=== PATIENT | male | born 1985 | race Caucasian/White ===

== ENCOUNTER 2020-04-06 22:14 | Inpatient (IN) | payer MEDICARE, MEDICAID, SELFPAY ==
[2020-04-06 22:14] VITALS: BP 140/92; PULSE 121; RESP 18; TEMP 36.4; O2SAT 98; BMI 29.2
[2020-04-06 23:10] LABS: Bacteria 0 SEEN /hpf (None Seen); Mucous, Urine 0 SEEN /hpf (<or=2+); Red Blood Cells-Urine 0 SEEN /hpf (0-5); Squamous Epithelial Cells - UA 0 SEEN /hpf (0-5); White Blood Cells 0 SEEN /hpf (0-5)
[2020-04-06 23:14] VITALS: RESP 18
--- NOTE | 2020-04-06 23:18 | ED.VIS.GEN ---
History of Present Illness Chief Complaint: ETOH Intox Informant: Patient, Significant Other Narrative: Patient presenting asking for detox. Chronic alcoholic does not know how long he has been drinking. Keeps talking about wanting to get into rehab. Denies any suicidal ideation or medical issues except for intermittent hematuria that happens from time to time that he has never looked into. No recent illnesses or injuries. He has used methamphetamine on occasion but not recently. No other substance use except for cigarettes. He usually does not experience withdrawal symptoms since he drinks throughout the day, he awakens every couple hours to drink alcohol throughout the night. Typical intake is about one fifth of bourbon per day, today he drank 1 L. Currently intoxicated. Here with the support of a significant other. - Past Medical History (1) Alcoholism Status: Chronic (2) Hypertension Status: Chronic Past Medical History - Allergies and Home Meds Allergies/Adverse Reactions: Allergies Sulfa (Sulfonamide Antibiotics) Allergy (Verified 04/06/20 22:17) Swelling Primary Care Physician: NOT,DEFINED [NON-STAFF] - Lives: Spouse/ Significant Other Smoking Status: Current every day smoker Alcohol: Heavy Drugs: - - Methamphetamine Review of Systems General: Denies: Chills, Fever, Sweats Eyes: Denies: Visual changes - bilaterally, Diplopia ENT: Denies: Rhinorrhea, Sore throat Cardiovascular: Denies: Chest pain, Palpitations Respiratory: Denies: Dyspnea, Cough, Dyspnea on exertion Gastrointestinal: Denies: Abdominal pain, Nausea, Vomiting, Diarrhea, Melena, Hematochezia Genitourinary: Reports: Hematuria - Intermittently, chronic. Denies: Dysuria, Frequency Musculoskeletal: Denies: Myalgias, Neck pain, Back pain, Swelling, Extremity Pain Skin: Denies: Rash, Wounds Neurological: Denies: Headache, Weakness, Numbness Psych: Reports: Anxiety. Denies: Suicidal thoughts Physical Exam Vital Signs/Narrative: Vital Signs Temp Pulse Resp BP Pulse Ox 04/06/20 23:14 18 04/06/20 22:14 97.5 F L 121 H 18 140/92 H 98 Inital Vital Signs reviewed: Yes General: Well nourished, Well developed, No Acute Distress Head: Normocephalic, Atraumatic Eyes: Perrl, EOMI. Negative for: Scleral icterus - No sublingual jaundice ENT: Moist mucous membranes, No rhinorrhea Neck: Supple, Nontender, No lymphadenopathy Cardiovascular: Regular rate, Regular rhythm, No murmurs Respiratory: No distress, CTA bilaterally, Chest nontender Abdomen: Soft, Nontender, Nondistended, Normal bowel sounds Back: Nontender, Normal Inspection Extremities: Nontender, No edema. Negative for: Calf Tenderness Skin: Normal color, No rash, No Trauma Neurological: Alert, Oriented x3, Cranial nerves II-XII grossly intact, Normal Strength, Normal Sensation, - - Intoxicated. Cooperative. Psychological: Normal Mood, - - Anxious Diagnostic/Tx/Re-eval Laboratory Tests 04/06/20 04/06/20 04/06/20 Range/Units 22:59 22:59 22:59 WBC (4.4-11.0) K/mm3 RBC (4.6-6.2) M/mm3 Hgb (13.0-16.5) g/dL Hct (40-54) % MCV (80-94) fL MCH (27.0-32.0) pg MCHC (32-36) g/dL RDW Std Deviation (35.1-43.9) fl RDW Coeff of Suzy (11.6-14.6) % Plt Count (150-450) K/mm3 MPV (6.2-12.0) fl Immature Gran % (Auto) (0.0-0.9) % Neut % (Auto) (47-70) % Lymph % (Auto) (19-41) % [place] % (Auto) (0-10) % Eos % (Auto) (0-5) % Baso % (Auto) (0-1) % Absolute Neuts (auto) (2.0-7.7) X10^3/uL Absolute Lymphs (auto) (0.83-4.51) X10^3/uL Nucleated RBC % (0-5) % PT (11.7-14.9) SECONDS INR Sodium 145 (136-145) mmol/L Potassium 3.5 (3.5-5.1) mmol/L Chloride 114 H (98-107) mmol/L Carbon Dioxide 23.0 (21.0-32.0) mmol/L Anion Gap 8 (5-15) BUN 13 (7-18) mg/dL Creatinine 0.93 (0.70-1.30) mg/dL Estim Creat Clear Calc 116.95 ml/min Est GFR (MDRD) Af Amer 119 (>60) mL/min Est GFR (MDRD) Non-Af 98 (>60) mL/min BUN/Creatinine Ratio 14.0 (10-20) RATIO Glucose 112 H (74-106) mg/dL Calcium 9.4 (8.5-10.1) mg/dL Total Bilirubin 0.10 L (0.20-1.00) mg/dL AST 27 (15-37) U/L ALT 30 (16-61) U/L Alkaline Phosphatase 87 (45-117) U/L Total Protein 9.0 H (6.4-8.2) g/dL Albumin 4.5 (3.2-5.0) g/dL Globulin 4.5 H (2.2-4.2) g/dL Albumin/Globulin Ratio 1.0 (0.9-2.4) RATIO Urine Color Straw (Yellow) Urine Clarity Clear (Clear) Urine pH 6.0 (5.0 - 8.0) Ur Specific [place] 1.010 (1.002-1.030) Urine Protein 30 H (Negative) mg/dl Urine Glucose (UA) Normal (Normal) mg/dl Urine Ketones Negative (Negative) mg/dl Urine Occult Blood Negative (Negative) /ul Urine Nitrite Negative (Negative) Urine Bilirubin Negative (Negative) mg/dL Urine Urobilinogen Normal (Normal) mg/dl Ur Leukocyte Esterase Negative (Negative) /ul Urine RBC 0 SEEN (0-5) /hpf Urine WBC 0 SEEN (0-5) /hpf Ur Squamous Epith Cells 0 SEEN (0-5) /hpf Urine Bacteria 0 SEEN (None Seen) /hpf Urine Mucus 0 SEEN (<or=2+) /hpf Urine Opiates Screen NEGATIVE (< 300 ng/mL) Urine Methadone Screen NEGATIVE (< 300 ng/mL) Ur Barbiturates Screen NEGATIVE (< 200 ng/mL) Ur Phencyclidine Scrn NEGATIVE (< 25 ng/mL) Ur Amphetamines Screen NEGATIVE (<1000 ng/mL) U Methamphetamin-MDMA NEGATIVE (< 500 ng/mL) U Benzodiazepines Scrn NEGATIVE (< 200 ng/mL) Urine Cocaine Screen NEGATIVE (< 300 ng/mL) U Cannabinoids Screen NEGATIVE (< 50 ng/mL) Ur Drug Screen Comment 04/06/20 04/06/20 Range/Units 22:59 22:59 WBC 12.8 H (4.4-11.0) K/mm3 RBC 4.30 L (4.6-6.2) M/mm3 Hgb 14.3 (13.0-16.5) g/dL Hct 41.9 (40-54) % MCV 97.4 H (80-94) fL MCH 33.3 H (27.0-32.0) pg MCHC 34.1 (32-36) g/dL RDW Std Deviation 55.6 H (35.1-43.9) fl RDW Coeff of Suzy 15.5 H (11.6-14.6) % Plt Count 377 (150-450) K/mm3 MPV 9.0 (6.2-12.0) fl Immature Gran % (Auto) 0.900 (0.0-0.9) % Neut % (Auto) 59.5 (47-70) % Lymph % (Auto) 31.4 (19-41) % [place] % (Auto) 6.0 (0-10) % Eos % (Auto) 1.6 (0-5) % Baso % (Auto) 0.6 (0-1) % Absolute Neuts (auto) 7.6 (2.0-7.7) X10^3/uL Absolute Lymphs (auto) 4.02 (0.83-4.51) X10^3/uL Nucleated RBC % 0 (0-5) % PT 11.4 L (11.7-14.9) SECONDS INR 0.9 Sodium (136-145) mmol/L Potassium (3.5-5.1) mmol/L Chloride (98-107) mmol/L Carbon Dioxide (21.0-32.0) mmol/L Anion Gap (5-15) BUN (7-18) mg/dL Creatinine (0.70-1.30) mg/dL Estim Creat Clear Calc ml/min Est GFR (MDRD) Af Amer (>60) mL/min Est GFR (MDRD) Non-Af (>60) mL/min BUN/Creatinine Ratio (10-20) RATIO Glucose (74-106) mg/dL Calcium (8.5-10.1) mg/dL Total Bilirubin (0.20-1.00) mg/dL AST (15-37) U/L ALT (16-61) U/L Alkaline Phosphatase (45-117) U/L Total Protein (6.4-8.2) g/dL Albumin (3.2-5.0) g/dL Globulin (2.2-4.2) g/dL Albumin/Globulin Ratio (0.9-2.4) RATIO Urine Color (Yellow) Urine Clarity (Clear) Urine pH (5.0 - 8.0) Ur Specific [place] (1.002-1.030) Urine Protein (Negative) mg/dl Urine Glucose (UA) (Normal) mg/dl Urine Ketones (Negative) mg/dl Urine Occult Blood (Negative) /ul Urine Nitrite (Negative) Urine Bilirubin (Negative) mg/dL Urine Urobilinogen (Normal) mg/dl Ur Leukocyte Esterase (Negative) /ul Urine RBC (0-5) /hpf Urine WBC (0-5) /hpf Ur Squamous Epith Cells (0-5) /hpf Urine Bacteria (None Seen) /hpf Urine Mucus (<or=2+) /hpf Urine Opiates Screen (< 300 ng/mL) Urine Methadone Screen (< 300 ng/mL) Ur Barbiturates Screen (< 200 ng/mL) Ur Phencyclidine Scrn (< 25 ng/mL) Ur Amphetamines Screen (<1000 ng/mL) U Methamphetamin-MDMA (< 500 ng/mL) U Benzodiazepines Scrn (< 200 ng/mL) Urine Cocaine Screen (< 300 ng/mL) U Cannabinoids Screen (< 50 ng/mL) Ur Drug Screen Comment - Medical Decision Making Patient and significant other repeatedly were asking for something to relax him. He was given an Ativan which he took. Subsequently, for reasons that are unknown to me at this time, he eloped with his significant other. Disposition: Elopement ED Disposition - Plan for ED Patient: Diagnosis: Alcohol dependence, Alcohol intoxication
[2020-04-06 23:21] LABS: Color, Urine Straw (Yellow); Glucose, Dipstick Normal (Normal); International Normalized Ratio 0.9; Ketone-Dipstick Negative (Negative); Leukocyte Esterase-Dipstick Negative /ul (Negative); Nitrite-Dipstick Negative (Negative); Occult Blood-Urine Negative /ul (Negative); Protein-Dipstick 30 mg/dl (Negative); Prothrombin Time (Protime)PT. 11.4 SECONDS (11.7-14.9); Urine Bilirubin Dipstick Negative (Negative); Urine Clarity Clear (Clear); Urine Urobilinogen Normal (Normal)
[2020-04-06] MEDS: LORazepam 1 MG Tablet PO (23:21)
[2020-04-06 23:28] LABS: Absolute Lymphocyte Count 4.02 X10^3/uL (0.83-4.51); Absolute Neutrophil Count 7.6 X10^3/uL (2.0-7.7); Basophil# 0.08 X10^3/uL; Basophil% 0.6 % (0-1); Eosinophils% 1.6 % (0-5); Hematocrit 41.9 % (40-54); Hemoglobin 14.3 g/dL (13.0-16.5); Lymphocyte # 4.02 X10^3/ul (4.0); Lymphocyte % 31.4 % (19-41); Mean Corp Hgb Conc 34.1 g/dL (32-36); Mean Corpuscular Hgb 33.3 pg (27.0-32.0); Mean Corpuscular Volume 97.4 fL (80-94); Monocyte# 0.77 X10^3/uL; NRBC Flagged by Analyzer 0 % (0-5); Neutrophil % 59.5 % (47-70); Platelet Count 377 K/mm3 (150-450); RBC Distribution Width CV 15.5 % (11.6-14.6); RBC Distribution Width SD 55.6 fl (35.1-43.9); White Blood Count 12.8 K/mm3 (4.4-11.0)
[2020-04-06 23:32] LABS: Amphetamine Urine VISTA NEGATIVE (<1000 ng/mL); Barbiturate Urine VISTA NEGATIVE (< 200 ng/mL); Benzodiazepine Urine VISTA NEGATIVE (< 200 ng/mL); Cocaine Urine VISTA NEGATIVE (< 300 ng/mL); Ecstacy Urine VISTA NEGATIVE (< 500 ng/mL); Methadone Urine VISTA NEGATIVE (< 300 ng/mL); PCP Urine VISTA NEGATIVE (< 25 ng/mL); THC Urine VISTA NEGATIVE (< 50 ng/mL); Vista UDS pH Range 6
[2020-04-06 23:33] LABS: AST(SGOT) 27 U/L (15-37); Alanine Aminotransfer ALT/SGPT 30 U/L (16-61); Albumin, Serum 4.5 g/dL (3.2-5.0); Alkaline Phosphatase 87 U/L (45-117); Anion Gap 8 (5-15); BUN 13 mg/dL (7-18); Calcium,Total 9.4 mg/dL (8.5-10.1); Chloride 114 mmol/L (98-107); Creatinine, Serum 0.93 mg/dL (0.70-1.30); EST Glomerular Filtration Rate 98 mL/min (>60); Est Glom Filt Rate - Afr Amer 119 mL/min (>60); Estimated Creatinine Clearance 116.95 ml/min; Globulin 4.5 g/dL (2.2-4.2); Glucose 112 mg/dL (74-106); Potassium 3.5 mmol/L (3.5-5.1); Sodium Level 145 mmol/L (136-145)
--- NOTE | 2020-04-06 23:47 | ED.RN ---
patient up walking around the room and no longer wants to stay for rehab and detox. Patient claims we are not helping him. Patient able to answer questions and alert and oriented. Patient IV removed. Patient left and walked outside with .
--- NOTE | 2020-04-06 23:51 | ED.RN ---
patient returned to the ER at this time wanting help again
[2020-04-07] VITALS (7 sets, daily range): BP systolic 110–148; BP diastolic 64–95; PULSE 83–120; RESP 14–18; TEMP 36.4–37; O2SAT 95–99; BMI 26.9; BMI 27.0
--- NOTE | 2020-04-07 01:55 | PCM.HP.STD ---
History of Present Illness Date of Admission: 04/07/20 Chief Complaint: Alcohol withdrawal The patient is a 34 year old M with a PMH as below presents to the hospital with alcohol abuse and withdrawal. Alcohol level on admission was 317. CBC with a slight leukocytosis, which can be monitored. BMP was unremarkable. He says that he is gone through detox multiple times in the left AMA before and did not follow-up with rehab as an outpatient. He actually walked out of the ER during this admission however came back in saying that he was having a verbal altercation with his significant other and that he still wants to get help. He says this time is different and needs to get help. He would like for us to transfer him directly to rehab at discharge. Past Medical History Past Medical History (Chronic Problems): Chronic Problems Alcoholism (Chronic) Hypertension (Chronic) Allergies Sulfa (Sulfonamide Antibiotics) Allergy (Verified 04/06/20 22:17) Swelling Home Medications: Ambulatory Orders Medication Instructions Recorded Amlodipine [Norvasc] 5 mg PO DAILY 04/07/20 Gabapentin [Neurontin] 300 mg PO BID PRN 04/07/20 Oxycodone [Oxyir] 5 - 10 mg PO Q6H PRN PRN 04/07/20 Surgical History: no surgical history Lives: Spouse/ Significant Other Smoking Status: Current every day smoker Tobacco Use: Cigarettes Alcohol: Heavy Drugs: - - Methamphetamine - *Family History Maternal History Items: No pertinent history Paternal History Items: No pertinent history Review of Systems Constitutional: Denies: Chills, Fever, Weight Change HEENT: Denies: Head Aches, Sinus Congestion, Sinus Drainage Cardiovascular: Denies: Chest Pain, Palpitations Respiratory: Denies: Cough, Shortness of breath at rest, Sputum production Gastrointestinal: Denies: Abdominal Pain, Nausea, Vomiting Genitourinary: Reports: Hematuria - Chronic, intermittent. Denies: Dysuria Musculoskeletal: Denies: Joint Pain, Joint Tenderness Skin: Denies: Rash, Wounds Neurological: Denies: Numbness, Tingling, Focal weakness Psychiatric: Denies: Anxiety, Depression Hematologic/ Lymphatic: Denies: Easy Bruising, Easy Bleeding VTE Information - Inpt Only VTE Present on Admission: No Patient Problems: Active and Suspected Problems Alcohol dependence (Acute) Alcohol intoxication (Acute) - Physical Exam Vitals/I&O's: Vital Signs Temp Pulse Resp BP Pulse Ox 98.6 F 120 H 16 139/85 H 99 04/07/20 01:21 04/07/20 01:21 04/07/20 01:21 04/07/20 01:21 04/07/20 01:21 Oxygen Delivery Method Room Air Weight: 193 lb 5.526 oz Body Mass Index (BMI) 26.9 General: Alert, Oriented x3, Cooperative, No apparent distress, - - Given his alcohol level he is a little bit altered HEENT: Atraumatic, PERRLA, EOMI, Normocephalic Oral: Moist Mucosa Neck: Supple, No JVD Lungs: Clear to auscultation, Normal air movement, No rhonchi, No wheeze, No rales Cardiovascular: Regular rate, Regular Rhythm, Normal S1, Normal S2, No murmurs Abdomen: Soft, Non Tender, Non-Distended, No Hepato-splenomegaly Extremities: No edema, Capillary Refill Less than 3 Seconds Skin: No rashes, No breakdown Neurological: Neuro grossly intact, Sensory exam intact to light touch and pain, - - Intoxicated Psych/Mental Status: Restless Laboratory Results 04/06/20 22:59: WBC 12.8 H, RBC 4.30 L, Hgb 14.3, Hct 41.9, MCV 97.4 H, MCH 33.3 H, MCHC 34.1, RDW Std Deviation 55.6 H, RDW Coeff of Suzy 15.5 H, Plt Count 377, MPV 9.0, Immature Gran % (Auto) 0.900, Neut % (Auto) 59.5, Lymph % (Auto) 31.4, [place] % (Auto) 6.0, Eos % (Auto) 1.6, Baso % (Auto) 0.6, Absolute Neuts (auto) 7.6, Absolute Lymphs (auto) 4.02, Nucleated RBC % 0 04/06/20 22:59: PT 11.4 L, INR 0.9 04/06/20 22:59: Sodium 145, Potassium 3.5, Chloride 114 H, Carbon Dioxide 23.0, Anion Gap 8, BUN 13, Creatinine 0.93, Estim Creat Clear Calc 116.95, Est GFR (MDRD) Af Amer 119, Est GFR (MDRD) Non-Af 98, BUN/Creatinine Ratio 14.0, Glucose 112 H, Calcium 9.4, Total Bilirubin 0.10 L, AST 27, ALT 30, Alkaline Phosphatase 87, Total Protein 9.0 H, Albumin 4.5, Globulin 4.5 H, Albumin/Globulin Ratio 1.0 04/06/20 22:59: Ethyl Alcohol 317.0 H* 04/06/20 22:59: Urine Opiates Screen NEGATIVE, Urine Methadone Screen NEGATIVE, Ur Barbiturates Screen NEGATIVE, Ur Phencyclidine Scrn NEGATIVE, Ur Amphetamines Screen NEGATIVE, U Methamphetamin-MDMA NEGATIVE, U Benzodiazepines Scrn NEGATIVE, Urine Cocaine Screen NEGATIVE, U Cannabinoids Screen NEGATIVE, Ur Drug Screen Comment 04/06/20 22:59: Urine Color Straw, Urine Clarity Clear, Urine pH 6.0, Ur Specific [place] 1.010, Urine Protein 30 H, Urine Glucose (UA) Normal, Urine Ketones Negative, Urine Occult Blood Negative, Urine Nitrite Negative, Urine Bilirubin Negative, Urine Urobilinogen Normal, Ur Leukocyte Esterase Negative, Urine RBC 0 SEEN, Urine WBC 0 SEEN, Ur Squamous Epith Cells 0 SEEN, Urine Bacteria 0 SEEN, Urine Mucus 0 SEEN Current Medications Sodium Chloride () 10 - 40 ml IV UD PRN PRN Reason: SALINE FLUSH Assessment/Plan All Active Problems Alcohol dependence (Acute) Alcohol intoxication (Acute) 1. Alcohol intoxication/withdrawal/tobacco abuse -Continue with alcohol withdrawal protocol drinks about half a liter to 1 L -Plan for outpatient 180 follow-up -Continue patch for tobacco abuse, discussed cessation 2. Hypertension -blood pressure is stable -Continue with Norvasc DVT: Ambulation Inpatient E&M: 84573 Init Hosp L2
[2020-04-07] MEDS: Gabapentin 300 MG Capsule PO (03:02)
[2020-04-07] MEDS: traZODone 100 MG Tablet PO ×2 (03:02→22:32)
[2020-04-07] MEDS: Phenobarbital 32.4 MG Tablet PO ×6 (03:02→22:32)
[2020-04-07] MEDS: Thiamine Hydrochloride 100 MG Tablet PO (10:50)
[2020-04-07] MEDS: amLODIPine 5 MG Tablet PO (10:50)
[2020-04-07] MEDS: Folic Acid 1 MG Tablet PO (10:50)
[2020-04-07] MEDS: Divalproex Sodium 250 MG Tablet 500 MG PO ×2 (10:57→17:59)
[2020-04-07] MEDS: oxyCODONE 5 MG Tablet PO ×3 (11:06→23:21)
--- NOTE | 2020-04-07 11:32 | PCM.HOSP.N ---
Hospitalist Note Patient was seen and examined today briefly, he is in for detox services from alcohol, he does have a psych history, patient has been diagnosed with bipolar disorder and is not currently on any medicines. I talked briefly with the patient about medicines he is been on, he states that he was on Seroquel and he did not feel right on this medication so he stopped it he was also on BuSpar at one time. Patient also initially told me he was schizophrenic, he asked me to call his and ask what medications he has been on for his psych disorders and I contacted his who told me that he is never been diagnosed with schizophrenia only manic depressive disorder. She states that he has an explosive temper and is verbally abusive frequently. Patient states he uses alcohol and weed for his behavioral issues. I have decided to place the patient on Depakote, we will start the Depakote at 500 mg 3 times daily and see if this helps.
[2020-04-08] VITALS (8 sets, daily range): BP systolic 111–133; BP diastolic 67–77; PULSE 78–95; RESP 16–18; TEMP 36.3–36.8; O2SAT 97–98
[2020-04-08] MEDS: Phenobarbital 32.4 MG Tablet PO ×6 (03:02→22:28)
[2020-04-08] MEDS: oxyCODONE 5 MG Tablet PO ×3 (06:40→18:43)
--- NOTE | 2020-04-08 09:27 | CASEMGMT ---
Social Work Note Pt is RAMP pt. SW placed a call to Sam at [facility] and left message that pt will need to be seen. Alanis Wright ANALYTICS DEVELOPER, CHIEF ENGINEER'S HELPER
[2020-04-08] MEDS: amLODIPine 5 MG Tablet PO (09:43)
[2020-04-08] MEDS: Folic Acid 1 MG Tablet PO (09:43)
[2020-04-08] MEDS: Thiamine Hydrochloride 100 MG Tablet PO (09:44)
[2020-04-08] MEDS: Divalproex Sodium 250 MG Tablet 500 MG PO ×3 (09:49→16:55)
--- NOTE | 2020-04-08 11:18 | PN_ITS ---
Patient Problems: Active and Suspected Problems Alcohol dependence (Acute) Alcohol intoxication (Acute) Subjective: Patient was seen and examined today, I talked him briefly about going into inpatient detox program, patient states that he will have to consider this but he would like to do outpatient detox if possible, I told him that his requested that I suggest inpatient detox program to him. Patient does not complain of excessive nervousness or tremor today. - Physical Exam Vitals/I&O's: Vital Signs Temp Pulse Resp BP Pulse Ox 97.9 F 83 18 111/67 97 04/08/20 10:02 04/08/20 10:02 04/08/20 10:02 04/08/20 10:02 04/08/20 10:02 Oxygen Delivery Method Room Air Weight: 87.7 kg Body Mass Index (BMI) 26.9 Intake and Output for Last 24 Hours 04/06/20 04/07/20 04/08/20 23:59 23:59 23:59 Intake Total 1550 / 1550 220 / 220 Balance 1550 / 1550 220 / 220 General: Alert, Oriented x3, Cooperative, No apparent distress, Well developed HEENT: Atraumatic, PERRLA, EOMI, Normocephalic Oral: Moist Mucosa Neck: Supple, Trachea Midline, Thyroid Normal Size and Texture Lungs: Clear to auscultation, Normal air movement, No rhonchi, No wheeze, No r ales Cardiovascular: Regular rate, Regular Rhythm, Normal S1, Normal S2, No murmurs, PMI Normal, No rub noted Abdomen: Bowel Sounds Present, Soft, Non Tender, Non-Distended Extremities: No clubbing, No cyanosis, No edema, Capillary Refill Less than 3 Seconds Skin: No rashes, No breakdown Musculoskeletal: No Tenderness to Palpation of Joints or Extremities Neurological: Cranial nerves II-XII grossly intact, Neuro grossly intact, Sensory exam intact to light touch and pain, Coordination normal Psych/Mental Status: Normal Affect, Appropriate, Alert and oriented to time, place, person, mood and affect Current Medications Amlodipine Besylate (Norvasc) 5 mg PO DAILY [facility] Last Admin: 04/08/20 09:43 Dose: 5 mg Documented by: Divalproex Sodium (Depakote) 500 mg PO TIDCM [facility] Last Admin: 04/08/20 09:49 Dose: 500 mg Documented by: Folic Acid (Folic Acid) 1 mg PO DAILY@0800 [facility] Last Admin: 04/08/20 09:43 Dose: 1 mg Documented by: Loperamide HCl (Imodium) 2 mg PO Q4H PRN PRN PRN Reason: LOOSE STOOLS Nicotine (Nicoderm Cq (Pbkc)) 21 mg TRANSDERM. DAILY [facility] Last Admin: 04/08/20 09:43 Dose: 21 mg Documented by: Ondansetron HCl (Zofran) 8 mg PO Q8H PRN PRN PRN Reason: NAUSEA Oxycodone HCl (Oxyir) 5 - 10 mg PO Q6H PRN PRN PRN Reason: back pain -04/20 Last Admin: 04/08/20 06:40 Dose: 10 mg Documented by: Phenobarbital (Phenobarbital) 64.8 mg PO Q4H [facility]; Taper Stop: 04/11/20 10:59 Last Admin: 04/08/20 09:49 Dose: 64.8 mg Documented by: Sodium Chloride () 10 - 40 ml IV UD PRN PRN Reason: SALINE FLUSH Thiamine HCl (Vitamin B1) 100 mg PO DAILYCM [facility] Last Admin: 04/08/20 09:44 Dose: 100 mg Documented by: Trazodone HCl (Desyrel) 100 mg PO QHS PRN PRN PRN Reason: INSOMNIA Last Admin: 04/07/20 22:32 Dose: 100 mg Documented by: Medical Necessity - Tobacco Use Smoking Status: Current every day smoker Tobacco Use: Cigarettes Assessment/Plan All Active Problems Alcohol dependence (Acute) Alcohol intoxication (Acute) #1 acute alcohol withdrawal-continue present medication #2 bipolar disorder-I started the patient yesterday on Depakote, this will be adjusted upward if possible. #3 degenerative disc disease of the lumbar spine Inpatient E&M: 44452 Subs Hosp L2
--- NOTE | 2020-04-08 12:44 | CPS ---
patient not interested
[2020-04-08] MEDS: traZODone 100 MG Tablet PO (22:28)
[2020-04-09] VITALS (7 sets, daily range): BP systolic 98–142; BP diastolic 53–89; PULSE 68–84; RESP 16–18; TEMP 36.3–37; O2SAT 98–100
[2020-04-09] MEDS: oxyCODONE 5 MG Tablet PO ×4 (02:54→22:05)
[2020-04-09] MEDS: Phenobarbital 32.4 MG Tablet PO ×5 (02:54→22:04)
[2020-04-09] MEDS: Thiamine Hydrochloride 100 MG Tablet PO (09:06)
[2020-04-09] MEDS: Divalproex Sodium 250 MG Tablet 500 MG PO ×3 (09:06→17:21)
[2020-04-09] MEDS: Folic Acid 1 MG Tablet PO (09:06)
--- NOTE | 2020-04-09 10:08 | ADDICTION ---
This lead technical writer met with patient to finalize d/c plan. Patient to engage with [facility] upon d/c for non-intensive outpatient counseling and plans to attend AA meetings. He stated that his will provide transportation upon discharge. He was given this lead technical writer's contact information if he decides to pursue a higher LOC upon d/c.
[2020-04-09] MEDS: Sertraline 50 MG Tablet PO (10:42)
[2020-04-09] MEDS: busPIRone 15 MG TABLET PO ×2 (15:01→22:05)
--- NOTE | 2020-04-09 16:24 | PN_ITS ---
Patient Problems: Active and Suspected Problems Alcohol dependence (Acute) Alcohol intoxication (Acute) Subjective: Patient was seen and examined today, he does not want to do inpatient detox, he prefers to do outpatient detox. He was talking about going to [facility] which [facility] an outpatient counseling center, I told him that I was not in favor of this unless they had an alcohol detox program. After talking with him at length, I have decided to place him on an antidepressant and BuSpar for anxiety-he had been on BuSpar before and tolerated this. Objective: General: Alert, Oriented x3, Cooperative, No apparent distress, Well developed HEENT: Atraumatic, PERRLA, EOMI, Normocephalic Oral: Moist Mucosa Neck: Supple, Trachea Midline, Thyroid Normal Size and Texture Lungs: Clear to auscultation, Normal air movement, No rhonchi, No wheeze, No rales Cardiovascular: Regular rate, Regular Rhythm, Normal S1, Normal S2, No murmurs, PMI Normal, No rub noted Abdomen: Bowel Sounds Present, Soft, Non Tender, Non-Distended Extremities: No clubbing, No cyanosis, No edema, Capillary Refill Less than 3 Seconds Skin: No rashes, No breakdown Musculoskeletal: No Tenderness to Palpation of Joints or Extremities Neurological: Cranial nerves II-XII grossly intact, Neuro grossly intact, Sensory exam intact to light touch and pain, Coordination normal Psych/Mental Status: Normal Affect, Appropriate, Alert and oriented to time, place, person, mood and affect - Physical Exam Vitals/I&O's: Vital Signs Temp Pulse Resp BP Pulse Ox 97.6 F L 79 18 142/89 H 100 04/09/20 15:04/09/20 15:00 04/09/20 15:00 04/09/20 15:00 04/09/20 15:00 Oxygen Delivery Method Room Air Weight: 87.7 kg Body Mass Index (BMI) 26.9 Intake and Output for Last 24 Hours 04/07/20 04/08/20 04/09/20 23:59 23:59 23:59 Intake Total 1550 / 1550 1720 / 2320 1400 / 1400 Balance 1550 / 1550 1720 / 2320 1400 / 1400 Current Medications Amlodipine Besylate (Norvasc) 5 mg PO DAILY [facility] Last Admin: 04/09/20 09:08 Dose: Not Given Documented by: Buspirone HCl (Buspar) 15 mg PO TID [facility] Last Admin: 04/09/20 15:01 Dose: 15 mg Documented by: Divalproex Sodium (Depakote) 500 mg PO TIDCM [facility] Last Admin: 04/09/20 12:10 Dose: 500 mg Documented by: Folic Acid (Folic Acid) 1 mg PO DAILY@0800 [facility] Last Admin: 04/09/20 09:06 Dose: 1 mg Documented by: Loperamide HCl (Imodium) 2 mg PO Q4H PRN PRN PRN Reason: LOOSE STOOLS Nicotine (Nicoderm Cq (Pbkc)) 21 mg TRANSDERM. DAILY [facility] Last Admin: 04/09/20 09:06 Dose: 21 mg Documented by: Ondansetron HCl (Zofran) 8 mg PO Q8H PRN PRN PRN Reason: NAUSEA Oxycodone HCl (Oxyir) 5 - 10 mg PO Q6H PRN PRN PRN Reason: back pain 1-04/20 Last Admin: 04/09/20 15:05 Dose: 10 mg Documented by: Phenobarbital (Phenobarbital) 64.8 mg PO Q6H [facility]; Taper Stop: 04/11/20 10:59 Last Admin: 04/09/20 10:42 Dose: 64.8 mg Documented by: Sertraline HCl (Zoloft) 50 mg PO DAILY [facility] Last Admin: 04/09/20 10:42 Dose: 50 mg Documented by: Sodium Chloride () 10 - 40 ml IV UD PRN PRN Reason: SALINE FLUSH [facility] Admin: 04/09/20 09:06 Dose: 100 mg Documented by: Trazodone HCl (Desyrel) 100 mg PO QHS PRN PRN PRN Reason: INSOMNIA Last Admin: 04/08/20 22:28 Dose: 100 mg Documented by: Medical Necessity - Tobacco Use Smoking Status: Current every day smoker Tobacco Use: Cigarettes Assessment/Plan All Active Problems Alcohol dependence (Acute) Alcohol intoxication (Acute) #1 acute alcohol withdrawal-continue present medication, I have urged the patient to go to an outpatient alcohol detox program at the time of discharge. 180 talked with him today. #2 bipolar disorder-I have decided to keep the patient on his current dose of Depakote, I have added Zoloft and BuSpar to his medical regimen. #3 degenerative disc disease of the lumbar spine Inpatient E&M: 24324 Subs Hosp L2
[2020-04-09] MEDS: traZODone 100 MG Tablet PO (22:04)
[2020-04-10 04:05] VITALS: BP 126/74; PULSE 72; RESP 18; TEMP 36.6; O2SAT 100
[2020-04-10] MEDS: busPIRone 15 MG TABLET PO ×2 (05:37→12:47)
[2020-04-10] MEDS: Phenobarbital 32.4 MG Tablet PO ×2 (05:37→11:24)
[2020-04-10] MEDS: oxyCODONE 5 MG Tablet PO ×2 (05:45→11:52)
--- NOTE | 2020-04-10 08:04 | DCINST_ITS ---
- Discharge Diagnoses Current Active Problems: Current Active and Chronic Problems Alcohol dependence (Acute) Alcoholism (Chronic) Hypertension (Chronic) Alcohol intoxication (Acute) You will use the following diet at home:: No restrictions Your food should be the consistency of: Regular Your liquids should be the consistency of: Regular/Thin Discharge Activity: Return to Normal Activity Weight Bearing Status: Full weight bearing Additional Instructions: STRONGLY SUGGEST YOU FOLLOW UP WITH PSYCHIATRIC PHYSICIAN Allergies/Adverse Reactions: Allergies Sulfa (Sulfonamide Antibiotics) Allergy (Verified 04/06/20 22:17) Swelling Medications to take at Discharge Amlodipine [Norvasc] 5 mg PO DAILY 04/07/20 Gabapentin [Neurontin] 300 mg PO BID PRN 04/07/20 Oxycodone [Oxyir] 5 - 10 mg PO Q6H PRN PRN 04/07/20 Divalproex Sodium [Depakote] 500 mg PO TIDCM #180 tab 04/10/20 Phenobarbital 32.4 mg PO BID 2 Days #5 tablet 04/10/20 Sertraline HCl [Zoloft] 100 mg PO DAILY #60 tab 04/10/20 busPIRone [Buspar] 15 mg PO TID #90 tab 04/10/20 The following prescriptions were given: busPIRone [Buspar] 15 mg PO TID #90 tab Transmission Status: Pending to [facility]/pharmacy #[id number] Divalproex Sodium [Depakote] 500 mg PO TIDCM #180 tab Transmission Status: Pending to [facility]/pharmacy #[id number] Phenobarbital 32.4 mg PO BID 2 Days #5 tablet Transmission Status: Received by [facility]/pharmacy #[id number] Sertraline HCl [Zoloft] 100 mg PO DAILY #60 tab Transmission Status: Pending to [facility]/pharmacy #[id number] Primary Care Physician: Alireza Hogan MD [Primary Care Provider] - Please follow up with your Primary Care Physician in: in 2 weeks Test Results: Test results from this visit will be discussed in further detail at your follow- up appointment, if applicable. Please Follow Up With: [facility] or outpatient detox program
[2020-04-10] MEDS: Divalproex Sodium 250 MG Tablet 500 MG PO ×2 (09:32→11:24)
[2020-04-10] MEDS: Sertraline 50 MG Tablet PO (09:33)
[2020-04-10] MEDS: Folic Acid 1 MG Tablet PO (09:33)
[2020-04-10] MEDS: amLODIPine 5 MG Tablet PO (09:33)
[2020-04-10] MEDS: Thiamine Hydrochloride 100 MG Tablet PO (09:34)
[2020-04-10 10:00] VITALS: BP 112/74; PULSE 78; RESP 18; TEMP 36.6; O2SAT 99
--- NOTE | 2020-04-10 11:52 | NURSING ---
Patti updated on discharge after talked w/ and primary RN Erma
--- NOTE | 2020-04-12 09:04 | DS.PCM_ITS ---
Discharge Date and Diagnosis Date of Admission: 04/07/20 Date of Discharge: 04/10/20 - Primary Discharge Diagnosis Acute Problems: 1 acute alcohol withdrawal #2 bipolar disorder #3 degenerative disc disease of the lumbar spine #4 chronic alcoholism - Secondary Discharge Diagnosis Chronic Problems: Chronic Problems Alcoholism (Chronic) Hypertension (Chronic) Hospital Course and Treatment Operations: None Procedures: None Summary of Care Provided: The patient is a 34 year old M who was seen in the emergency room at [facility] requesting services for alcohol detox. Patient has history of bipolar disorder and alcoholism. Work-up in the emergency room included labs which showed his ethyl alcohol level to be 317, toxicology screen was unremarkable, patient had an elevated white blood cell count at 12.8-etiology of this was unclear. Initially patient left the emergency room but then returned for admission for alcohol detox services, he was admitted to [place] [id number], I had discussions with his and the patient concerning his underlying bipolar disorder and decided to treat this bipolar disorder, he was placed on Depakote in the hospital and he received meds per the alcohol detox order set. Patient had no severe DTs while he was in the hospital, he was contacted by [facility] but decided not to follow-up with them as an inpatient (as requested by his ) and he was unsure whether he wanted to follow-up as an outpatient or seek further services from [facility] near his home. On 04/10/2020, patient was seen and examined: On examination he appeared in good health and spirits. Vital signs as documented. Skin warm and dry and without overt rashes. Neck without JVD, neck was supple, trachea midline, thyroid was normal. Lungs clear bilaterally, normal air movement was noted. Heart exam notable for regular rhythm, normal sounds and absence of murmurs, rubs or gallops. Abdomen unremarkable and without evidence of organomegaly, masses, or abdominal aortic enlargement. Bowel sounds are present, abdomen is not distended. Extremities nonedematous, no cyanosis was noted, no clubbing was noted. Neuro: Cranial nerves II through XII are grossly intact, no focal motor deficits were noted, sensation to light touch and pinprick intact, motor exam 5/5 throughout. Psych: Patient is alert and oriented x3, he does not appear anxious or depressed, he does not appear agitated. Patient was discharged to home in stable condition on 04/10/2020. He was instructed to follow-up regarding the need for outpatient alcohol detox services as well as outpatient psychiatric help for his bipolar disorder. - Physical Exam Vitals/I&O's: Vital Signs Temp Pulse Resp BP Pulse Ox 97.8 F 78 18 112/74 99 04/10/20 10:00 04/10/20 10:00 04/10/20 10:00 04/10/20 10:00 04/10/20 10:00 Oxygen Delivery Method Room Air Weight: 87.7 kg Body Mass Index (BMI) 26.9 Intake and Output for Last 24 Hours 04/10/20 04/11/20 04/12/20 23:59 23:59 23:59 Intake Total 240 / 240 Balance 240 / 240 Discharge Activity: Return to Normal Activity Weight Bearing Status: Full weight bearing Home Medications: Medications to take at Discharge Amlodipine [Norvasc] 5 mg PO DAILY 04/07/20 Gabapentin [Neurontin] 300 mg PO BID PRN 04/07/20 Oxycodone [Oxyir] 5 - 10 mg PO Q6H PRN PRN 04/07/20 Divalproex Sodium [Depakote] 500 mg PO TIDCM #180 tab 04/10/20 Sertraline HCl [Zoloft] 100 mg PO DAILY #60 tab 04/10/20 busPIRone [Buspar] 15 mg PO TID #90 tab 04/10/20 Following Prescriptions Were Given to Patient: busPIRone [Buspar] 15 mg PO TID #90 tab Transmission Status: Received by [facility]/pharmacy #[id number] Divalproex Sodium [Depakote] 500 mg PO TIDCM #180 tab Transmission Status: Received by [facility]/pharmacy #[id number] Sertraline HCl [Zoloft] 100 mg PO DAILY #60 tab Transmission Status: Received by [facility]pharmacy #[id number] Primary Care Physician: Alireza Hogan MD [Primary Care Provider] - Please follow up with your Primary Care Physician in: in 2 weeks Please Follow Up With: [facility] or outpatient detox program Disposition: Home Minutes spent on discharge:: 32 Patient Condition:: Stable Medical Necessity - Tobacco Use Smoking Status: Current every day smoker Tobacco Use: Cigarettes Meaningful Use Info Meaningful Use Diagnoses (Choose all that apply): None applicable Inpatient E&M: [id number] Disch Hosp
== END 2020-04-10 12:50 | disposition home or self-care (01) | DRG 897 ==
LOC: ED 23:47 → MS3 04-07 02:16
PROVIDERS: Admitting Provider Family Medicine; Emergency Provider Emergency Medicine; PCP Family Medicine; Visit Provider Internal Medicine
DX: F10.229 Alcohol dependence with intoxication, unspecified (principal); F10.230 Alcohol dependence with withdrawal, uncomplicated; I10 Essential (primary) hypertension; F17.210 Nicotine dependence, cigarettes, uncomplicated; F31.9 Bipolar disorder, unspecified; M51.36 Other intervertebral disc degeneration, lumbar region; F41.9 Anxiety disorder, unspecified; Y90.8 Blood alcohol level of 240 mg/100 ml or more; Z79.899 Other long term (current) drug therapy; F12.90 Cannabis use, unspecified, uncomplicated
CPT/HCPCS: 80053; 80307; 80320; 81001; 85025; 85610; 99283; 99406; A4216; G0480